=== PATIENT | female | born 1980 | race African-American/Black ===

== ENCOUNTER 2022-06-18 07:01 | Outpatient (CLI) | payer OTHER, SELFPAY ==
--- NOTE | 2022-06-18 | ECG_ITS ---
Measurements Intervals [place] Rate: 52 P: 30 ME: 157 QRS: 67 QRSD: 93 T: 67 QT: 396 QTc: 370 Interpretive Statements SINUS BRADYCARDIA BASELINE ARTIFACT- I, II, III, AVR, AVL, AVF, V6 BORDERLINE ECG NO PREVIOUS ECG AVAILABLE FOR COMPARISON Electronically Signed On 06-18-2022 7:56:46 CLINICAL INFORMATION SYSTEMS DIRECTOR by Jamey Tobias D.O.
[2022-06-18 07:48] LABS: Basophils Absolute Auto 0.1 K/mm3 (0.0-0.1); Basophils Percent Auto 0.8 % (0.2-1.2); Eosinophils Absolute Auto 0.1 K/mm3 (0-0.3); Eosinophils Percent Auto 2.2 % (0-4.4); Hematocrit 43.5 % (37.0-47.0); Hemoglobin 14.1 g/dL (12.0-15.0); Immature Granulocyte Absolute 0.02 K/mm3 (0.00-0.031); Immature Granulocyte Percent A 0.3 % (0-0.5); Lymphocytes Absolute Auto 1.79 K/mm3 (0.9-3.2); Lymphocytes Percent Auto 30.4 % (18.3-44.2); Mean Corpuscular HGB Conc 32.4 g/dl (32-36); Mean Corpuscular Hemoglobin 26.5 pg (26-34); Mean Corpuscular Volume 81.8 fl (80-100); Mean Platelet Volume 11.4 fl (7.4-10.4); Monocytes Absolute Auto 0.6 K/mm3 (0.1-0.6); Monocytes Percent Auto 10.4 % (2.6-8.5); Neutrophils Absolute Auto 3.3 K/mm3 (1.3-6.7); Neutrophils Percent Auto 55.9 % (45.5-73.1); Platelet Count Result 210 k/mm3 (150-375); Red Blood Count 5.32 M/mm3 (4.2-5.4); Red Cell Distribution Width 15.6 % (11.5-14.5); White Blood Count 5.9 K/mm3 (4.5-10.0)
[2022-06-18 07:56] LABS: Prothrombin Time 12.9 Seconds (11.1-14.7)
[2022-06-18 08:01] LABS: Alanine Aminotransferase 11 U/L (6-35); Albumin Level 4.4 g/dL (3.5-5.1); Alkaline Phosphatase 42 U/L (38-126); Anion Gap 4 mmol/L (8-16); Aspartate Amino Transferase 21 U/L (14-36); Blood Urea Nitrogen 8 mg/dL (7-17); Calcium 8.8 mg/dL (8.4-10.2); Carbon Dioxide 30 mmol/L (22-30); Chloride 100 mmol/L (98-107); Estimated Glomerular Filt Rate > 60; Glucose 89 mg/dL (65-110); Potassium 4.2 mmol/L (3.4-5.0); Sodium 134 mmol/L (137-145)
[2022-06-18 11:28] LABS: Partial Thromboplastin Time 30.1 SECONDS (22.3-36.8)
== END 2022-06-18 07:02 | disposition home or self-care (01) ==
PROVIDERS: PCP Family Medicine; Visit Provider Family Medicine
DX: Z01.818 Encounter for other preprocedural examination (principal); R00.1 Bradycardia, unspecified
CPT/HCPCS: 36415; 80053; 85025; 85610; 85730; 93005

== ENCOUNTER 2022-09-16 21:57 | Emergency (ER) | payer OTHER, SELFPAY ==
--- NOTE | ~2022-09-16 | CT_ITS ---
EXAMINATION: CT abdomen pelvis w con DATE: 09/17/2022 00:37 INDICATION: Postop bleeding from tummy tuck. TECHNIQUE: Computed tomography (CT) of the abdomen and pelvis was performed with 100 cc Omnipaque 350 intravenous contrast. The dose-length product was 458.96 mGy-cm. Automated exposure control and iter ative reconstruction technique were employed. COMPARISON: None. FINDINGS: Lung bases unremarkable. Heart size normal. Bilateral breast implants are present. No signi ficant pleural or pericardial effusion. There is a complex mixture of soft tissue of the anterior abdominal wall with main collection measuri ng 16.1 x 4 x 17.5 cm. This collection extends intra-abdominally via the umbilicus. There is a draina ge catheter in place. There is high density fluid dependently in the pelvic cul-de-sac. There is a ri ght adnexal cyst measuring 2.5 cm. The liver, spleen, pancreas, adrenal glands and kidneys are unremarkable. Gallbladder is present. Non obstructive bowel gas pattern. Normal appendix. Possible fibroid uterus. Tampon present in the vagina l canal. No acute osseous abnormality. IMPRESSION: 1. Complex partially cystic fluid collection of the anterior abdominal wall extending intra-abdominal ly via the umbilicus. This most likely represents postoperative seroma/hematoma, although infection i s not excluded. 2: Right adnexal cyst measuring 2.5 cm, most likely ovarian. Reviewed, dictated and finalized at location A. IMPRESSION: 1. Complex partially cystic fluid collection of the anterior abdominal wall ext ending intra-abdominally via the umbilicus. This most likely represents postope rative seroma/hematoma, although infection is not excluded. 2: Right adnexal cyst measuring 2.5 cm, most likely ovarian.
[2022-09-16 22:11] VITALS: BP 132/95; PULSE 84; RESP 18; TEMP 36.9; O2SAT 98
--- NOTE | 2022-09-16 23:42 | ED.GENADULT ---
HPI - General Adult General Chief complaint: Unspecified Stated complaint: wound drainage, post op Time Seen by Provider: 09/16/22 23:29 History of Present Illness HPI narrative: Patient is a 41-year-old female with a history of a tummy tuck on August 31 here for evaluation of increased drainage from her CECILIO drain. Patient states that she had an uncomplicated procedure on the fourth by a surgeon in [place]. She was doing well until earlier today when she started noticing some increased drainage (25-30 ml) from her CECILIO drain. She contacted her surgeon who believed it was a resolving hematoma. Tonight when she took a shower she noticed about 75 mils of bloody output which prompted her ED evaluation. States that she does feel lightheaded. She has been coughing since the procedure and she is nervous that she might have undone a suture. Denies any chest pain, shortness of breath, fevers or chills, nausea or vomiting, abdominal pain. Related Data Allergies Allergy/AdvReac Type Severity Reaction Status Date / Time No Known Allergies Allergy Verified 09/16/22 23:56 Exam Narrative: APPEARANCE: Well appearing, no pain in distress, well-nourished. Head: Normocephalic and atraumatic. EYES: PERRLA/EOMI, conjunctivae clear NOSE: No nasal drainage EARS: External ear normal in appearance THROAT: Oropharynx is clear. Mucous membranes are moist. NECK: Supple. No adenopathy, no masses. RESPIRATORY: Airway patent, respirations nonlabored. Clear to auscultation bilaterally, no rales, rhonchi, wheezing. CARDIOVASCULAR: Regular rate and rhythm without murmurs, rubs, or gallops. ABDOMINAL: There is a CECILIO drain in the suprapubic region with about 10 cc of bloody output. There is an abdominal binder in place. Normoactive bowel sounds. Soft, nontender, nondistended. No rebound tenderness or guarding. MUSCULOSKELETAL: Extremities are warm and well-perfused. Moves all extremities well. No edema. NEURO: Normal speech. No focal neurologic deficits. SKIN: Skin is warm and dry. No rashes. PSYCHIATRIC: Normal affect/mood.. Course Vital Signs Vital signs: Vital Signs Temperature 98.5 F 09/16/22 22:11 Pulse Rate 84 09/16/22 22:11 Respiratory Rate 18 09/16/22 22:11 Blood Pressure 132/95 H 04/20/23 22:11 Pulse Oximetry 98 09/16/22 22:11 Oxygen Delivery Room Air 09/16/22 22:11 Temperature 98.5 F 09/16/22 22:11 Pulse Rate 84 09/16/22 22:11 Respiratory Rate 18 09/16/22 22:11 Blood Pressure 132/95 H 09/16/22 22:11 Pulse Oximetry 98 09/16/22 22:11 Oxygen Delivery Room Air 09/16/22 22:11 Medical Decision Making MDM Narrative Medical decision making narrative: 41-year-old female here for evaluation of increased drainage from her CECILIO drains after she had a tummy tuck procedure 3 weeks ago in [place]. She has follow-up with her surgeon in 10 hours. She is nontoxic in appearance and has normal vital signs, no abdominal tenderness on exam, she had about 10 cc of bloody output in her CECILIO drains currently. Her hemoglobin is stable at 11.0. Basic labs otherwise unremarkable. Abdomen pelvis CT shows findings that likely represent a hematoma, which patient's surgeon was suspicious for. Also showing a cyst in the right ovary, patient not having any pain in this site so ultrasound ordered. She has follow-up with her surgeon in 10 hours. Encouraged her to keep this appointment, she was provided with a copy of her CT scan to go over with her surgeon. We discussed return precautions and she voiced understanding. Vital Signs Vital Signs: Vital Signs Temperature 98.5 F 09/16/22 22:11 Pulse Rate 84 09/16/22 22:11 Respiratory Rate 18 09/16/22 22:11 Blood Pressure 132/95 H 09/16/22 22:11 Pulse Oximetry 98 09/16/22 22:11 Oxygen Delivery Room Air 09/16/22 22:11 Temperature 98.5 F 09/16/22 22:11 Pulse Rate 84 09/16/22 22:11 Respiratory Rate 18 09/16/22 22:11 Blood Pressure 132/95 H 09/16/22 22:11 Pulse
[2022-09-16 23:53] LABS: Basophils Absolute Auto 0.1 K/mm3 (0.0-0.1); Basophils Percent Auto 0.6 % (0.2-1.2); Eosinophils Absolute Auto 0.1 K/mm3 (0-0.3); Eosinophils Percent Auto 1.4 % (0-4.4); Hematocrit 33.7 % (37.0-47.0); Immature Granulocyte Absolute 0.07 K/mm3 (0.00-0.031); Immature Granulocyte Percent A 0.7 % (0-0.5); Lymphocytes Percent Auto 11.6 % (18.3-44.2); Mean Corpuscular HGB Conc 32.6 g/dl (32-36); Mean Corpuscular Hemoglobin 27.7 pg (26-34); Mean Corpuscular Volume 84.9 fl (80-100); Mean Platelet Volume 11.9 fl (7.4-10.4); Monocytes Absolute Auto 0.7 K/mm3 (0.1-0.6); Monocytes Percent Auto 7.1 % (2.6-8.5); Neutrophils Absolute Auto 7.5 K/mm3 (1.3-6.7); Neutrophils Percent Auto 78.6 % (45.5-73.1); Platelet Count Result 334 k/mm3 (150-375); Red Blood Count 3.97 M/mm3 (4.2-5.4); Red Cell Distribution Width 15.4 % (11.5-14.5); White Blood Count 9.5 K/mm3 (4.5-10.0)
[2022-09-16] MEDS: SODIUM CHLORIDE 0.9% IV 1,000 ML 999 ML IV CONT (23:57)
[2022-09-17 00:03] LABS: Alanine Aminotransferase 17 U/L (6-35); Albumin Level 4.4 g/dL (3.5-5.1); Alkaline Phosphatase 53 U/L (38-126); Anion Gap 5 mmol/L (8-16); Aspartate Amino Transferase 32 U/L (14-36); Bilirubin,Total 0.7 mg/dL (0.2-1.3); Blood Urea Nitrogen 15 mg/dL (7-17); Calcium 9.4 mg/dL (8.4-10.2); Carbon Dioxide 31 mmol/L (22-30); Chloride 99 mmol/L (98-107); Estimated CRCL calculation 108 ml/min; Estimated Glomerular Filt Rate > 60; Glucose 88 mg/dL (65-110); Sodium 135 mmol/L (137-145)
[2022-09-17 01:01] LABS: Appearance Urine Clear (Clear); Bacteria Urine None Seen /hpf; Bilirubin Urine Negative (Negative); Blood Urine Trace (Negative); Color Urine Yellow (Yellow); Glucose Urine UA Negative (Negative); Ketones Urine 1+ mg/dL (Negative); Leukocyte Esterase Ur Negative LEU/UL (Negative); Nitrate Urine Negative (Negative); Non Pathogenic Casts 0-2; Protein Urine Negative (Negative); RBC Urine 0-2 /hpf (0-2); Specific Grav Ur 1.007 (1.001-1.035); Squamous Epithelial Cell Urine None seen /hpf (Few); Urobilinogen Urine 0.2 mg/dL (<2.0); WBC Urine 0-5 /hpf; pH Urine 5.5 (5.0-9.0)
[2022-09-17 02:41] LABS: Add Urine Microscopic? YES
[2022-09-17] MEDS: ACETAMINOPHEN 325 MG TABLET 650 MG (02:47)
== END 2022-09-17 02:48 ==
PROVIDERS: Emergency Provider Physician Assistant; PCP Family Medicine
DX: K91.871 Postprocedural hematoma of a digestive system organ or structure following other procedure (principal); N83.201 Unspecified ovarian cyst, right side
CPT/HCPCS: 36415; 74177; 80053; 81001; 81025; 85025; 96360; 96361; 99284; A9270; J7030; Q9967